=== PATIENT | female | born 1975 | race Two or more races ===

== ENCOUNTER 2023-07-28 12:39 | Emergency (ER) | payer MEDICAID ==
[~2023-07-28] VITALS: Ht 149.9 cm; Wt 52.9 kg
[2023-07-28 14:22] VITALS: BP 159/90; PULSE 100; RESP 16; TEMP 98.3; O2SAT 97
[2023-07-28] MEDS ORDERED: CEPH500C PO (14:40)
[2023-07-28] MEDS ORDERED: NAPR-746 PO (14:40)
== END 2023-07-28 14:51 | disposition home or self-care (01) ==
LOC: ER 12:39
DX: T23.201A Burn of second degree of right hand, unspecified site, initial encounter (principal); X08.8XXA Exposure to other specified smoke, fire and flames, initial encounter; Y93.89 Activity, other specified; Y92.89 Other specified places as the place of occurrence of the external cause; Y99.8 Other external cause status
CPT/HCPCS: 16020

== ENCOUNTER 2024-03-03 08:03 | Emergency (ER) | payer MEDICAID ==
[~2024-03-03] VITALS: Ht 149.9 cm; Wt 51.8 kg
[~2024-03-03 08:03] MED LIST: CEPH500C PO; NAPR-746 PO
[2024-03-03 08:34] VITALS: PULSE 101; RESP 18; O2SAT 96
[2024-03-03] MEDS ORDERED: METH4PAK PO (08:40)
[2024-03-03] MEDS ORDERED: TRIA0.02 TOP (08:40)
[2024-03-03] MEDS: EPINEPHrine HCL 1 MG/1 ML AMP SC ONE (08:52)
[2024-03-03 09:11] VITALS: BP 132/87; PULSE 91; RESP 18; TEMP 98.2; O2SAT 97
== END 2024-03-03 09:16 | disposition home or self-care (01) ==
LOC: ER 08:07
DX: L23.9 Allergic contact dermatitis, unspecified cause (principal); Z79.899 Other long term (current) drug therapy
CPT/HCPCS: 96372; 99283; J0171